=== PATIENT | female | born 1935 | race Caucasian/White ===

== ENCOUNTER 2019-05-13 06:57 | Day surgery (SDC) | payer OTHER ==
[~2019-05-13 06:57] MED LIST: ASPIR 8181 MG PO; ATACAND4 MG PO; ATORVASTATIN CA20 MG PO; CLONAZEPAM0.5 MG
== END 2019-05-13 13:00 | disposition home or self-care (01) ==
LOC: CIR.AMB 06:57
DX: M67.844 Other specified disorders of tendon, left hand (principal); M65.322 Trigger finger, left index finger

== ENCOUNTER 2020-01-21 08:28 | Emergency (ER) | payer OTHER ==
[~2020-01-21] VITALS: Ht 165.1 cm; Wt 45.4 kg
[2020-01-21] MEDS ORDERED: KETO10TA2 PO (11:28)
== END 2020-01-21 12:39 | disposition home or self-care (01) ==
LOC: ER 08:28
DX: S52.691A Other fracture of lower end of right ulna, initial encounter for closed fracture (principal); S00.03XA Contusion of scalp, initial encounter; S40.011A Contusion of right shoulder, initial encounter; S50.01XA Contusion of right elbow, initial encounter; M54.2 Cervicalgia; W01.198A Fall on same level from slipping, tripping and stumbling with subsequent striking against other object, initial encounter; Y93.89 Activity, other specified; Y92.89 Other specified places as the place of occurrence of the external cause; Y99.8 Other external cause status

== ENCOUNTER 2020-02-02 09:01 | Outpatient (CLI) | payer OTHER ==
[~2020-02-02 09:01] MED LIST changes: +KETO10TA2 PO
== END 2020-02-02 09:09 | disposition home or self-care (01) ==
LOC: RAD 09:01
PROVIDERS: ATTEND Orthopaedic Surgery
DX: M19.011 Primary osteoarthritis, right shoulder (principal); S52.692A Other fracture of lower end of left ulna, initial encounter for closed fracture; M25.511 Pain in right shoulder

== ENCOUNTER 2020-03-01 08:51 | Outpatient (CLI) | payer OTHER | END 2020-03-01 09:03 | disposition HB | LOC: RAD 08:51 | PROVIDERS: ATTEND Orthopaedic Surgery | DX: S52.692D Other fracture of lower end of left ulna, subsequent encounter for closed fracture with routine healing (principal) ==

== ENCOUNTER 2020-03-16 10:36 | Outpatient (CLI) | payer OTHER | END 2020-03-16 10:43 | disposition home or self-care (01) | LOC: RAD 10:36 | PROVIDERS: ATTEND Orthopaedic Surgery | DX: S52.692D Other fracture of lower end of left ulna, subsequent encounter for closed fracture with routine healing (principal) ==

== ENCOUNTER 2020-04-21 10:18 | Outpatient (CLI) | payer OTHER | END 2020-04-21 10:24 | disposition home or self-care (01) | LOC: NUCLEAR 10:18 | PROVIDERS: ATTEND Orthopaedic Surgery | DX: M80.031D Age-related osteoporosis with current pathological fracture, right forearm, subsequent encounter for fracture with routine healing (principal) ==

== ENCOUNTER 2021-01-21 09:17 | Emergency (ER) | payer OTHER ==
[~2021-01-21] VITALS: Ht 154.9 cm; Wt 46.7 kg
== END 2021-01-21 13:11 | disposition home or self-care (01) ==
LOC: ER 09:17 → EDBD 09:19 → ER 13:11
DX: S52.571A Other intraarticular fracture of lower end of right radius, initial encounter for closed fracture (principal); S50.11XA Contusion of right forearm, initial encounter; W18.09XA Striking against other object with subsequent fall, initial encounter; Y93.89 Activity, other specified; Y92.098 Other place in other non-institutional residence as the place of occurrence of the external cause; Y99.8 Other external cause status

== ENCOUNTER 2021-01-24 06:30 | Day surgery (SDC) | payer OTHER | END 2021-01-24 13:55 | disposition home or self-care (01) | LOC: EDBD → CIR.AMB 06:30 | PROVIDERS: ATTEND Orthopaedic Surgery | DX: S52.571A Other intraarticular fracture of lower end of right radius, initial encounter for closed fracture (principal); M62.431 Contracture of muscle, right forearm; Z20.822 Contact with and (suspected) exposure to COVID-19 | CPT/HCPCS: 25609; 20902; 25118; 25280; C1776 ==

== ENCOUNTER → 2021-01-30 | Outpatient (CLI) | payer OTHER | END | disposition home or self-care (01) | LOC: MRI 10:50 | DX: M43.17 Spondylolisthesis, lumbosacral region (principal); M62.838 Other muscle spasm; M54.16 Radiculopathy, lumbar region | CPT/HCPCS: 72148 ==

== ENCOUNTER 2021-04-19 09:32 | Emergency (ER) | payer OTHER ==
[~2021-04-19] VITALS: Ht 152.4 cm; Wt 47.6 kg
[2021-04-19] MEDS ORDERED: NAPROXEN375 MG PO (11:06)
[2021-04-19] MEDS ORDERED: MEDROLPACK PO (11:06)
== END 2021-04-19 11:19 | disposition home or self-care (01) ==
LOC: ER 09:32
DX: M54.50 Low back pain, unspecified (principal); I10 Essential (primary) hypertension

== ENCOUNTER 2021-05-29 09:16 | Emergency (ER) | payer OTHER ==
[~2021-05-29] VITALS: Ht 154.9 cm; Wt 48.1 kg
[~2021-05-29 09:16] MED LIST changes: +MEDROLPACK PO; +NAPROXEN375 MG PO
== END 2021-05-29 11:18 | disposition home or self-care (01) ==
LOC: ER 09:16
DX: S59.912A Unspecified injury of left forearm, initial encounter (principal); W01.0XXA Fall on same level from slipping, tripping and stumbling without subsequent striking against object, initial encounter; Y93.01 Activity, walking, marching and hiking; Y92.019 Unspecified place in single-family (private) house as the place of occurrence of the external cause

== ENCOUNTER 2021-10-25 05:10 | Day surgery (SDC) | payer OTHER ==
[~2021-10-25 05:10] MED LIST changes: +BONIVA150 MG PO
== END 2021-10-25 11:10 | disposition home or self-care (01) ==
LOC: CIR.AMB 05:10
PROVIDERS: ATTEND Surgery Surgery of the Hand
DX: M65.841 Other synovitis and tenosynovitis, right hand (principal); Z20.822 Contact with and (suspected) exposure to COVID-19; I10 Essential (primary) hypertension; Z79.82 Long term (current) use of aspirin

== ENCOUNTER 2022-01-25 11:53 | Emergency (ER) | payer OTHER ==
[~2022-01-25] VITALS: Ht 154.9 cm; Wt 46.7 kg
== END 2022-01-25 13:16 | disposition left against medical advice (07) ==
LOC: ER 11:53
DX: M51.36 Other intervertebral disc degeneration, lumbar region (principal); E78.00 Pure hypercholesterolemia, unspecified; I10 Essential (primary) hypertension

== ENCOUNTER 2022-06-20 14:14 | Emergency (ER) | payer OTHER ==
[~2022-06-20] VITALS: Ht 165.1 cm; Wt 47.6 kg
== END 2022-06-20 17:04 | disposition home or self-care (01) ==
LOC: ER 14:14
DX: I95.9 Hypotension, unspecified (principal); G56.02 Carpal tunnel syndrome, left upper limb

== ENCOUNTER 2022-09-05 08:46 | Outpatient (CLI) | payer OTHER | END 2022-09-05 08:48 | disposition home or self-care (01) | LOC: RAD 08:46 | PROVIDERS: ATTEND Surgery Surgery of the Hand | DX: Z01.89 Encounter for other specified special examinations (principal) ==

== ENCOUNTER 2022-11-03 10:13 | Emergency (ER) | payer OTHER ==
[~2022-11-03] VITALS: Ht 152.4 cm; Wt 45.8 kg
== END 2022-11-03 14:10 | disposition home or self-care (01) ==
LOC: ER 10:13
PROVIDERS: General Practice
DX: M47.816 Spondylosis without myelopathy or radiculopathy, lumbar region (principal); M67.919 Unspecified disorder of synovium and tendon, unspecified shoulder

== ENCOUNTER 2022-11-05 08:12 | Emergency (ER) | payer OTHER ==
[~2022-11-05] VITALS: Ht 154.9 cm; Wt 45.8 kg
[2022-11-05] MEDS ORDERED: NORFLEX100MG PO (08:55)
[2022-11-05] MEDS ORDERED: DICLOFENAC SODI75 MG PO (08:55)
== END 2022-11-05 09:17 | disposition home or self-care (01) ==
LOC: ER 08:12
DX: M54.50 Low back pain, unspecified (principal); I10 Essential (primary) hypertension; M51.37 Other intervertebral disc degeneration, lumbosacral region
CPT/HCPCS: 72100; 96372; 99284; J1885

== ENCOUNTER 2022-11-07 10:53 | Emergency (ER) | payer OTHER ==
[~2022-11-07] VITALS: Ht 152.4 cm; Wt 45.8 kg
[~2022-11-07 10:53] MED LIST changes: +DICLOFENAC SODI75 MG PO; +NORFLEX100MG PO
== END 2022-11-07 13:39 | disposition home or self-care (01) ==
LOC: ER 10:53
DX: I10 Essential (primary) hypertension (principal); M54.9 Dorsalgia, unspecified
CPT/HCPCS: 36415; 96372; 99284; J1885; J2360

== ENCOUNTER → 2022-11-09 | Emergency (ER) | payer OTHER | END | disposition left against medical advice (07) | LOC: ER 11:04 | DX: Z53.21 Procedure and treatment not carried out due to patient leaving prior to being seen by health care provider (principal) ==

== ENCOUNTER 2022-11-15 06:06 | Emergency (ER) | payer OTHER ==
[~2022-11-15] VITALS: Ht 152.4 cm; Wt 45.4 kg
== END 2022-11-15 10:31 | disposition home or self-care (01) ==
LOC: ER 06:06
DX: K59.01 Slow transit constipation (principal); I10 Essential (primary) hypertension

== ENCOUNTER 2024-03-20 10:34 | Outpatient (CLI) | payer OTHER | END 2024-03-20 10:51 | disposition home or self-care (01) | LOC: MRI 10:34 | PROVIDERS: ATTEND Psychiatry & Neurology Clinical Neurophysiology | DX: M47.816 Spondylosis without myelopathy or radiculopathy, lumbar region (principal) | CPT/HCPCS: 72148 ==